=== PATIENT | male | born 1960 | race Caucasian/White ===

== ENCOUNTER 2021-07-30 14:52 | Observation (INO) ==
[2021-07-30 17:16] LABS: BASOPHILS # (AUTO) 0.1 X10^3/uL (0.0-0.1); BASOPHILS % (AUTO) 0.7 % (0.2-1.0); EOSINOPHILS # (AUTO) 0.1 x10^3/uL (0.0-0.2); EOSINOPHILS % (AUTO) 1.7 % (0.9-2.9); HEMATOCRIT 41.6 % (42.0-54.0); HEMOGLOBIN 14.6 g/dL (13.5-18.0); LYMPHOCYTES # (AUTO) 3.1 X10^3/uL (1.3-2.9); LYMPHOCYTES % (AUTO) 39.6 % (21.0-51.0); MEAN CORPUSCULAR HEMOGLOBIN 31.5 pg (27.0-34.0); MEAN CORPUSCULAR HGB CONC 35.2 g/dL (33.0-35.0); MEAN CORPUSCULAR VOLUME 89.4 fL (80.0-100.0); MEAN PLATELET VOLUME 8.4 fL (7.4-11.0); MONOCYTES # (AUTO) 0.5 x10^3/uL (0.3-0.8); MONOCYTES % (AUTO) 6.8 % (0.0-13.0); NEUTROPHILS % (AUTO) 51.2 % (42.0-75.0); PLATELET COUNT 184 X10^3/uL (150.0-450.0); RED BLOOD COUNT 4.65 X10^6/uL (4.7-6.0); RED CELL DISTRIBUTION WIDTH 12.3 % (11.6-16.5); WHITE BLOOD COUNT 7.7 X10^3/uL (3.6-10.0)
[2021-07-30 17:38] LABS: ALANINE AMINOTRANSFERASE 48 Units/L (12-78); ALBUMIN 3.9 g/dL (3.4-5.0); ALKALINE PHOSPHATASE 69 Units/L (46-116); ASPARTATE AMINO TRANSFERASE 23 Units/L (15-37); BLOOD UREA NITROGEN 15 mg/dL (7-18); CARBON DIOXIDE 27.2 mmol/L (21-32); CHLORIDE 105 mmol/L (98-107); CKMB % 0.8 % (<4); COR NA(FOR HYPERGLY) 141 mmol/L (136-145); CREATINE KINASE 129 Units/L (39-308); CREATININE 0.99 mg/dL (0.70-1.30); SODIUM 141 mmol/L (136-145); TOTAL PROTEIN 7.1 g/dL (6.4-8.2); TSH (3RD GENERATION) 1.136 uIU/mL (0.358-3.74); eGFR NON BLACK RACES > 60 (>60)
[2021-07-30] MEDS ORDERED: AMBIEN PO PRN (18:16)
[2021-07-30 18:42] VITALS: BMI 31.0
[2021-07-31 04:07] VITALS: BP 116/72
[2021-07-31 06:06] LABS: BASOPHILS % (AUTO) 0.5 % (0.2-1.0); EOSINOPHILS # (AUTO) 0.2 x10^3/uL (0.0-0.2); EOSINOPHILS % (AUTO) 2.2 % (0.9-2.9); HEMOGLOBIN 14.4 g/dL (13.5-18.0); LYMPHOCYTES # (AUTO) 2.6 X10^3/uL (1.3-2.9); LYMPHOCYTES % (AUTO) 35.6 % (21.0-51.0); MEAN CORPUSCULAR HEMOGLOBIN 31.4 pg (27.0-34.0); MEAN CORPUSCULAR HGB CONC 35.2 g/dL (33.0-35.0); MEAN CORPUSCULAR VOLUME 89.4 fL (80.0-100.0); MEAN PLATELET VOLUME 8.7 fL (7.4-11.0); MONOCYTES # (AUTO) 0.5 x10^3/uL (0.3-0.8); NEUTROPHILS # (AUTO) 4.1 x10^3/uL (2.2-4.8); NEUTROPHILS % (AUTO) 54.7 % (42.0-75.0); PLATELET COUNT 168 X10^3/uL (150.0-450.0); RED BLOOD COUNT 4.59 X10^6/uL (4.7-6.0); WHITE BLOOD COUNT 7.4 X10^3/uL (3.6-10.0)
[2021-07-31 06:13] LABS: ALANINE AMINOTRANSFERASE 45 Units/L (12-78); ALBUMIN 3.6 g/dL (3.4-5.0); ALKALINE PHOSPHATASE 62 Units/L (46-116); ASPARTATE AMINO TRANSFERASE 23 Units/L (15-37); BLOOD UREA NITROGEN 12 mg/dL (7-18); CALCIUM 8.8 mg/dL (8.5-10.1); CARBON DIOXIDE 24.2 mmol/L (21-32); CHLORIDE 106 mmol/L (98-107); COR NA(FOR HYPERGLY) 142 mmol/L (136-145); CREATININE 0.89 mg/dL (0.70-1.30); MAGNESIUM 1.9 mg/dL (1.7-2.9); SODIUM 141 mmol/L (136-145); TOTAL PROTEIN 6.6 g/dL (6.4-8.2); eGFR NON BLACK RACES > 60 (>60)
--- NOTE | 2021-07-31 08:43 | DR.H&P ---
H&P History & Physical for Day of: H&P Date: 07/30/21 Chief Complaint Chief Complaint: Chest discomfort/ Slow Heart Rate in the 30's Allergies Allergies Allergy/AdvReac Type Severity Reaction Status Date / Time No Known Drug Allergies Allergy Verified 07/30/21 17:42 History of Present Illness History of Present Illness: This is a pleasant 61-year-old white male who had 2 stents placed on July 02, 2022. He has been doing fine since then until just over a weeks ago. At that time, he had developed bradycardia at night with heart rates in the 30's getting as low as 31 he reports. He had associated symptoms with this such as substernal pressure and SOB. Getting up and walking around would relieve his symptoms of chest discomfort. Symptoms are worse si tting down he reports and he has to sleep on his side to sleep at night to avoid these symptoms he reports. Past Medical History Past Medical History: Coronary Artery Disease, Dyslipidemia and Hypertension Additional Medical History: Insomnia Past Surgical History Surgical History: Angioplasty/Stents (2 Coronary Artery Stents placed on July 02, 2022.) Family History Family Medical History: Diabetes Mellitus, Coronary Artery Disease and Hypertension Social History Does patient currently use any type of tobacco product: No Have you used tobacco products in the last 12 months: No Type of Tobacco Use: Cigarettes How many years tobacco product used: 10 Does any household member use tobacco: No Alcohol Use: None Drug Use: None Medications Home Medications: No Known Drug Allergies Allergy (Verified 07/30/21 17:42) CONTINUE taking the following medications aspirin 81 mg PO DAILY 07/30/21 [History] atorvastatin 40 mg PO DAILY 07/30/21 [History] pantoprazole 40 mg PO BID 07/30/21 [History] prasugrel [Effient] 10 mg PO DAILY 07/30/21 [History] zolpidem 10 mg PO HS PRN 07/30/21 [History] Labs Result Diagrams: 07/31/21 05:26 07/31/21 05:26 Labs: Laboratory WBC 7.4 X10^3/uL (3.6-10.0) 07/31/21 05:26 RBC 4.59 X10^6/uL (4.7-6.0) L 07/31/21 05:26 Hgb 14.4 g/dL (13.5-18.0) 07/31/21 05:26 Hct 41.0 % (42.0-54.0) L 07/31/21 05:26 MCV 89.4 fL (80.0-100.0) 07/31/21 05:26 MCH 31.4 pg (27.0-34.0) 07/31/21 05:26 MCHC 35.2 g/dL (33.0-35.0) H 07/31/21 05:26 RDW 12.0 % (11.6-16.5) 07/31/21 05:26 Plt Count 168 X10^3/uL (150.0-450.0) 07/31/21 05:26 MPV 8.7 fL (7.4-11.0) 07/31/21 05:26 Neut % (Auto) 54.7 % (42.0-75.0) 07/31/21 05:26 Lymph % (Auto) 35.6 % (21.0-51.0) 07/31/21 05:26 [place] % (Auto) 7.0 % (0.0-13.0) 07/31/21 05:26 Eos % (Auto) 2.2 % (0.9-2.9) 07/31/21 05:26 Baso % (Auto) 0.5 % (0.2-1.0) 07/31/21 05:26 Neut # (Auto) 4.1 x10^3/uL (2.2-4.8) 07/31/21 05:26 Lymph # (Auto) 2.6 X10^3/uL (1.3-2.9) 07/31/21 05:26 [place] # (Auto) 0.5 x10^3/uL (0.3-0.8) 07/31/21 05:26 Eos # (Auto) 0.2 x10^3/uL (0.0-0.2) 07/31/21 05:26 Baso # (Auto) 0.0 X10^3/uL (0.0-0.1) 07/31/21 05:26 Absolute Nucleated RBC 0.1 /100WBC 07/31/21 05:26 Sodium 141 mmol/L (136-145) 07/31/21 05:26 Corrected Sodium 142 mmol/L (136-145) 07/31/21 05:26 Potassium 3.9 mmol/L (3.5-5.1) 07/31/21 05:26 Chloride 106 mmol/L (98-107) 07/31/21 05:26 Carbon Dioxide 24.2 mmol/L (21-32) 07/31/21 05:26 BUN 12 mg/dL (7-18) 07/31/21 05:26 Creatinine 0.89 mg/dL (0.70-1.30) 07/31/21 05:26 Est GFR (MDRD) Af Amer > 60 (>60) 07/31/21 05:26 Est GFR (MDRD) Non-Af > 60 (>60) 07/31/21 05:26 Glucose 129 mg/dL (65-99) H 07/31/21 05:26 Calcium 8.8 mg/dL (8.5-10.1) 07/31/21 05:26 Corrected Calcium TNP 07/31/21 05:26 Magnesium 1.9 mg/dL (1.7-2.9) 07/31/21 05:26 Total Bilirubin 0.60 mg/dL (0.2-1.0) 07/31/21 05:26 AST 23 Units/L (15-37) 07/31/21 05:26 ALT 45 Units/L (12-78) 07/31/21 05:26 Alkaline Phosphatase 62 Units/L (46-116) 07/31/21 05:26 Creatine Kinase 99 Units/L (39-308) 07/31/21 05:26 CK-MB (CK-2) 1.0 ng/mL (0-4.0) 07/31/21 05:26 CK/CKMB % Calc 1.0 % (<4) 07/31/21 05:26 Troponin I High Sens 42.1 ng/L (4.0-60.0) 07/31/21 05:26 B-Natriuretic Peptide 77.2 pg/mL (0-79) 07/30/21 17:05 Total Protein 6.6 g/dL (6.4-8.2) 07/31/21 05:26 Albumin 3.6 g/dL (3.4-5.0) 07/31/21 05:26 Globulin 3.0 g/dL (2.5-4.5) 07/31/21 05:26 Albumin/Globulin Ratio 1.2 Ratio (1.1-2.1) 07/31/21 05:26 TSH 3rd Generation 1.136 uIU/mL (0.358-3.74) 07/30/21 17:05 SARS CoV-2 RNA Rapid CHEPE Negative (NEGATIVE) 07/30/21 16:12 Review of Systems Constitutional: No Symptoms Reported Eyes: No Symptoms Reported ENT: No Symptoms Reported Respiratory: Cough Cardiovascular: Chest Pain and Palpitations Gastrointestinal: No Symptoms Reported Genitourinary: No Symptoms Reported Musculoskeletal: No Symptoms Reported Skin: No Symptoms Reported Neurological: No Symptoms Reported Physical Exam Vital Signs: Temperature 97.7 F Pulse Rate [Right Brachial] 66 Respiratory Rate 20 Blood Pressure [Right Arm] 116/72 Blood Pressure 105/69 O2 Sat by Pulse Oximetry 96 Oriented: Normal Eyes: Normal Ear: Normal Nose: Normal Throat: Normal Respiratory: Clear Throughout Cardiovascular: Bradycardia and Irregular : Normal Auscultation: Bowel Sounds: Normal Palpation: Normal Tenderness: Normal Skin: Normal Musculoskeletal: Normal Psychiatric: Normal Mood Description: Calm Affect: Normal Speech Pattern: Clear Assessment/Plan (1) Hypertension: Status: Chronic Plan: Resume home BP med. (2) Chest pain: Status: Acute Plan: Check Serial EKG's and Cardiac enzymes. (3) Bradycardia with 31-40 beats per minute: Status: Acute Plan: Admitted to [facility] and placed on telemetry. Plan on transfer to [facility] in morning. (4) CAD (coronary artery disease): Status: Acute (5) Insomnia: Status: Acute Plan: Ambien Review H&P Reviewed: Yes Patient was examined?: Yes
[2021-07-31] MEDS ORDERED: PROTONIX TAB 40 MG PO SCH (09:00)
[2021-07-31] MEDS ORDERED: LIPITOR TAB 40 MG PO SCH (09:00)
[2021-07-31] MEDS ORDERED: PATIENT'S HOME MEDICATION PO SCH (09:00)
[2021-07-31] MEDS ORDERED: ASPIRIN EC 81 MG PO SCH (09:00)
--- NOTE | 2021-07-31 09:21 | PCM.DCPLAN ---
DISCHARGE SUMMARY Admission Date Date of Admission: 07/30/21 Discharge Date Discharge Date: 07/31/21 Admission Diagnoses (1) Hypertension: Status: Chronic (2) Chest pain: Status: Acute (3) Bradycardia with 31-40 beats per minute: Status: Acute (4) CAD (coronary artery disease): Status: Acute (5) Insomnia: Status: Acute Discharge Diagnoses Discharge Diagnosis: 1. Symptomatic Bradycardia with HR in the 30's 2. Chest pain with SOB and Substernal pressure 3. Ventricular Bigeminy by EKG 4. Insomnia 5. HTN 6. Dyslipidemia Discharge Medications Discharge Medications: Home Medication List aspirin 81 mg PO DAILY 07/30/21 [History] atorvastatin 40 mg PO DAILY 07/30/21 [History] pantoprazole 40 mg PO BID 07/30/21 [History] prasugrel [Effient] 10 mg PO DAILY 07/30/21 [History] zolpidem 10 mg PO HS PRN 07/30/21 [History] Prescriptions: Hospital Course Vital Signs: Temperature 97.7 F Pulse Rate [Right Brachial] 66 Respiratory Rate 20 Blood Pressure [Right Arm] 116/72 Blood Pressure 105/69 O2 Sat by Pulse Oximetry 96 Latest Lab Results: Laboratory Last Values WBC 7.4 X10^3/uL (3.6-10.0) 07/31/21 05:26 RBC 4.59 X10^6/uL (4.7-6.0) L 07/31/21 05:26 Hgb 14.4 g/dL (13.5-18.0) 07/31/21 05:26 Hct 41.0 % (42.0-54.0) L 07/31/21 05:26 MCV 89.4 fL (80.0-100.0) 07/31/21 05:26 MCH 31.4 pg (27.0-34.0) 07/31/21 05:26 MCHC 35.2 g/dL (33.0-35.0) H 07/31/21 05:26 RDW 12.0 % (11.6-16.5) 07/31/21 05:26 Plt Count 168 X10^3/uL (150.0-450.0) 07/31/21 05:26 MPV 8.7 fL (7.4-11.0) 07/31/21 05:26 Neut % (Auto) 54.7 % (42.0-75.0) 07/31/21 05:26 Lymph % (Auto) 35.6 % (21.0-51.0) 07/31/21 05:26 [place] % (Auto) 7.0 % (0.0-13.0) 07/31/21 05:26 Eos % (Auto) 2.2 % (0.9-2.9) 07/31/21 05:26 Baso % (Auto) 0.5 % (0.2-1.0) 07/31/21 05:26 Neut # (Auto) 4.1 x10^3/uL (2.2-4.8) 07/31/21 05:26 Lymph # (Auto) 2.6 X10^3/uL (1.3-2.9) 07/31/21 05:26 [place] # (Auto) 0.5 x10^3/uL (0.3-0.8) 07/31/21 05:26 Eos # (Auto) 0.2 x10^3/uL (0.0-0.2) 07/31/21 05:26 Baso # (Auto) 0.0 X10^3/uL (0.0-0.1) 07/31/21 05:26 Absolute Nucleated RBC 0.1 /100WBC 07/31/21 05:26 Sodium 141 mmol/L (136-145) 07/31/21 05:26 Corrected Sodium 142 mmol/L (136-145) 07/31/21 05:26 Potassium 3.9 mmol/L (3.5-5.1) 07/31/21 05:26 Chloride 106 mmol/L (98-107) 07/31/21 05:26 Carbon Dioxide 24.2 mmol/L (21-32) 07/31/21 05:26 BUN 12 mg/dL (7-18) 07/31/21 05:26 Creatinine 0.89 mg/dL (0.70-1.30) 07/31/21 05:26 Est GFR (MDRD) Af Amer > 60 (>60) 07/31/21 05:26 Est GFR (MDRD) Non-Af > 60 (>60) 07/31/21 05:26 Glucose 129 mg/dL (65-99) H 07/31/21 05:26 Calcium 8.8 mg/dL (8.5-10.1) 07/31/21 05:26 Corrected Calcium TNP 07/31/21 05:26 Magnesium 1.9 mg/dL (1.7-2.9) 07/31/21 05:26 Total Bilirubin 0.60 mg/dL (0.2-1.0) 07/31/21 05:26 AST 23 Units/L (15-37) 07/31/21 05:26 ALT 45 Units/L (12-78) 07/31/21 05:26 Alkaline Phosphatase 62 Units/L (46-116) 07/31/21 05:26 Creatine Kinase 99 Units/L (39-308) 07/31/21 05:26 CK-MB (CK-2) 1.0 ng/mL (0-4.0) 07/31/21 05:26 CK/CKMB % Calc 1.0 % (<4) 07/31/21 05:26 Troponin I High Sens 42.1 ng/L (4.0-60.0) 07/31/21 05:26 B-Natriuretic Peptide 77.2 pg/mL (0-79) 07/30/21 17:05 Total Protein 6.6 g/dL (6.4-8.2) 07/31/21 05:26 Albumin 3.6 g/dL (3.4-5.0) 07/31/21 05:26 Globulin 3.0 g/dL (2.5-4.5) 07/31/21 05:26 Albumin/Globulin Ratio 1.2 Ratio (1.1-2.1) 07/31/21 05:26 TSH 3rd Generation 1.136 uIU/mL (0.358-3.74) 07/30/21 17:05 SARS CoV-2 RNA Rapid CHEPE Negative (NEGATIVE) 07/30/21 16:12 Hospital Course: Following admission the patient was placed on O2 via [place]. He reports that he feels much better with it and that he has much less severe chest discomfort symptoms. He was placed on telemetry yesterday evening and through the night which show his HR dropped to the low 40's. Telemetry revealed his heart rhythm would change between ventricular bigeminy and NSR. Troponins have been negative thus far. He is currently asymptomatic and reports no new problems this morning. I spoke with his Medical Engineer, Dr Zarco and the hospitalist, Dr. Diaz in [facility] in [place], [place] and they have agreed to accept Mr. Ragland for further evaluation and treatment.
== END 2021-07-31 10:45 | disposition home or self-care (01) ==
LOC: MED/SURG
PROVIDERS: ADMIT Family Medicine; ATTEND Family Medicine
DX: Z20.822 Contact with and (suspected) exposure to COVID-19; E78.2 Mixed hyperlipidemia; R94.31 Abnormal electrocardiogram [ECG] [EKG]; I25.10 Atherosclerotic heart disease of native coronary artery without angina pectoris; R06.02 Shortness of breath; R07.89 Other chest pain; R73.09 Other abnormal glucose; R00.1 Bradycardia, unspecified; I10 Essential (primary) hypertension; G47.00 Insomnia, unspecified